=== PATIENT | male | born 1990 | race Two or more races ===

== ENCOUNTER 2024-02-08 10:09 | Outpatient (CLI) | payer BC | END 2024-02-08 23:59 | disposition home or self-care (01) | LOC: MSC 10:09 | PROVIDERS: ATTEND Anesthesiology | DX: G89.4 Chronic pain syndrome (principal); M51.26 Other intervertebral disc displacement, lumbar region; M51.24 Other intervertebral disc displacement, thoracic region; M47.10 Other spondylosis with myelopathy, site unspecified; Z79.899 Other long term (current) drug therapy ==